=== PATIENT | female | born 1955 | race Two or more races ===

== ENCOUNTER → 2016-08-28 | Outpatient (CLI) | payer BC ==
--- NOTE | 2016-08-28 16:00 | Diagnostic Imaging Report ---
Indication: SCREEN Technique: Bilateral Craniocaudal and mediolateral oblique views were obtained. Comparison: 02/25/2015 diagnostic mammogram and ultrasound, 01/19/20 14/05/1999 screening exam Findings: The breasts are heterogeneously dense, which may obscure small masses. No parenchymal asymmetry nor architectural distortion. There are benign calcifications bilaterally. No dominant masses nor suspicious clustered microcalcifications. No skin thickening nor nipple retraction. No axillary adenopathy. Previously reported left breast asymmetries were worked up, thought to be artifactual for diagnostic imaging, are less conspicuous currently. Impression: No mammographic evidence of malignancy. Routine annual rescreening recommended. BI-RADS category 2-benign. Breast density BI-RADS type C-heterogeneously dense breasts, which may obscure small masses
== END | disposition home or self-care (01) ==
LOC: MAMMO 10:08
DX: Z12.31 Encounter for screening mammogram for malignant neoplasm of breast (principal)
CPT/HCPCS: 77067

== ENCOUNTER 2018-11-13 13:58 | Inpatient (IN) | payer BC ==
[~2018-11-13] VITALS: Ht 149.9 cm; Wt 80.3 kg
[2018-11-13] MEDS ORDERED: SYNTHROID100 MCG ORAL (14:16)
[2018-11-13] MEDS ORDERED: Isovue-300 100ml vial INJ PRN (14:30)
--- NOTE | 2018-11-13 14:35 | Emergency Room Report ---
History of Present Illness General Chief Complaint: Pain Source: Patient Present Illness HPI 63-year-old female history of hypothyroidism presents with right flank pain that started at 9 PM unknown aggravating alleviating factors, pain was sharp, constant no dysuria no fevers she endorsed feeling sweaty. Pain subsided 30 minutes prior to arrival, patient presents for evaluation. She denies any chest pain shortness of breath, no dyspnea on exertion Allergies: Coded Allergies: No Known Allergies (Unverified , 11/13/18) Patient History Past Medical History: see triage record Last Menstrual Period: na Reviewed Nursing Documentation: PMH: Agreed; PSxH: Agreed Nursing Documentation-PMH Past Medical History: No History, Except For Hx Cancer: Yes - ovarian removal Review of Systems All Other Systems: negative except mentioned in HPI Physical Exam Vital Signs Date Time Temp Pulse Resp B/P (MAP) Pulse Ox O2 Delivery O2 Flow Rate FiO2 11/13/18 14:08 99.1 102 20 109/68 (82) 99 Room Air Sp02 EP Interpretation: reviewed, normal General Appearance: well appearing, no apparent distress, alert Head: normocephalic, atraumatic Eyes: bilateral eye PERRL, bilateral eye EOMI ENT: uvula midline, moist mucus membranes Neck: supple, thyroid normal, supple/symm/no masses Respiratory: lungs clear, no respiratory distress, no retraction, no accessory muscle use Cardiovascular #1: normal peripheral pulses, regular rate, rhythm, no edema, no gallop, no murmur Gastrointestinal: non tender, soft, no guarding, no rebound Musculoskeletal: normal inspection Neurologic: alert, oriented x3 Psychiatric: mood/affect normal Skin: no rash, warm/dry Medical Decision Making Diagnostic Impression: Primary Impression: JENNA (acute kidney injury) Additional Impressions: Nephrolithiasis Intractable pain ER Course 63-year-old female presents with right flank pain differential diagnosis includes AAA, nephrolithiasis, pyelonephritis CT scan shows a large proximal ureter stone, Dr. De Los Santos consulted will come see patient in AM for possible surgery Will admit patient for intractable pain and management. Patient admitted to Dr. Longo 5:38pm Laboratory Tests Test 11/13/18 14:16 11/13/18 14:45 Urine Color Pale yellow Urine Appearance Clear Urine pH 5 (4.5-8.0) Urine Specific [place] 1.005 (1.005-1.035) Urine Protein Negative (NEGATIVE) Urine Glucose (UA) Negative (NEGATIVE) Urine Ketones Negative (NEGATIVE) Urine Blood Negative (NEGATIVE) Urine Nitrite Negative (NEGATIVE) Urine Bilirubin Negative (NEGATIVE) Urine Urobilinogen Normal MG/DL (0.0-1.0) Urine Leukocyte Esterase 1+ (NEGATIVE) H Urine RBC 0 /HPF (0 - 2) Urine WBC 0-2 /HPF (0 - 2) Urine Squamous Epithelial Cells Occasional /LPF Urine Bacteria None /HPF (NONE) White Blood Count 11.3 K/UL (4.8-10.8) H Red Blood Count 4.38 M/UL (4.20-5.40) Hemoglobin 13.9 G/DL (12.0-16.0) Hematocrit 40.2 % (37.0-47.0) Mean Corpuscular Volume 92 FL (80-99) Mean Corpuscular Hemoglobin 31.8 PG (27.0-31.0) H Mean Corpuscular Hemoglobin Concent 34.7 G/DL (32.0-36.0) Red Cell Distribution Width 11.1 % (11.6-14.8) L Platelet Count 191 K/UL (150-450) Mean Platelet Volume 7.0 FL (6.5-10.1) Neutrophils (%) (Auto) % (45.0-75.0) Lymphocytes (%) (Auto) % (20.0-45.0) Monocytes (%) (Auto) % (1.0-10.0) Eosinophils (%) (Auto) % (0.0-3.0) Basophils (%) (Auto) % (0.0-2.0) Differential Total Cells Counted 100 Neutrophils % (Manual) 73 % (45-75) Lymphocytes % (Manual) 3 % (20-45) L Monocytes % (Manual) 2 % (1-10) Eosinophils % (Manual) 0 % (0-3) Basophils % (Manual) 0 % (0-2) Band Neutrophils 22 % (0-8) H Platelet Estimate Adequate Platelet Morphology Normal Red Blood Cell Morphology Normal Sodium Level 139 MMOL/L (136-145) Potassium Level 3.5 MMOL/L (3.5-5.1) Chloride Level 103 MMOL/L (98-107) Carbon Dioxide Level 18 MMOL/L (21-32) L Anion Gap 18 mmol/L (5-15) H Blood Urea Nitrogen 20 mg/dL (7-18) H Creatinine 1.5 MG/DL (0.55-1.30) H Estimate Glomerular Filtration Rate 35.1 mL/min (>60) Glucose Level 155 MG/DL (74-106) H Calcium Level 8.9 MG/DL (8.5-10.1) Total Bilirubin 0.6 MG/DL (0.2-1.0) Aspartate Amino Transferase (AST) 23 U/L (15-37) Alanine Aminotransferase (ALT) 27 U/L (12-78) Alkaline Phosphatase 70 U/L (46-116) Troponin I 0.000 ng/mL (0.000-0.056) Total Protein 7.5 G/DL (6.4-8.2) Albumin 3.3 G/DL (3.4-5.0) L Globulin 4.2 g/dL Albumin/Globulin Ratio 0.8 (1.0-2.7) L Lipase 109 U/L (73-393) EKG Diagnostic Results EKG Time: 14:26 EP Interpretation: Sinus tachycardia, rate 101, QTc 404, no acute ST elevations , left axis dev CT/MRI/US Diagnostic Results CT/MRI/US Diagnostic Results : Impression Preliminary Findings Only See Final Report For Complete Findings CT ABDOMEN & PELVIS With Contrast: 7 x 10 x 24 mm stone in the right proximal ureter with moderate obstructive changes. Superimposed infection should be considered. Small hiatal hernia. Fatty liver. No radiodense gallstones or pancreatitis. Heterogeneous uterus with the low attenuation foci. Fat-containing umbilical hernia. Radiologist: Brayan Garnett M.D. Study ready at 16:21 and initial results transmitted at 16:32 Last Vital Signs Date Time Temp Pulse Resp B/P (MAP) Pulse Ox O2 Delivery O2 Flow Rate FiO2 11/13/18 14:08 99.1 102 20 109/68 (82) 99 Room Air Disposition: ADMITTED INPATIENT Condition: Stable Brian Rothman MD Nov 13, 2018 14:35
[2018-11-13 15:08] LABS: HEMATOCRIT 40.2 % (37.0-47.0); HEMOGLOBIN 13.9 G/DL (12.0-16.0); MEAN CORPUSCULAR VOLUME 92 FL (80-99); PLATELET COUNT 191 K/UL (150-450); RED BLOOD COUNT 4.38 M/UL (4.20-5.40); RED CELL DISTRIBUTION WIDTH 11.1 % (11.6-14.8); WHITE BLOOD COUNT 11.3 K/UL (4.8-10.8)
[2018-11-13 15:18] LABS: ANION GAP 18 mmol/L (5-15); BLOOD UREA NITROGEN 20 mg/dL (7-18); CALCIUM 8.9 MG/DL (8.5-10.1); CARBON DIOXIDE 18 MMOL/L (21-32); CHLORIDE 103 MMOL/L (98-107); CREATININE 1.5 MG/DL (0.55-1.30); POTASSIUM 3.5 MMOL/L (3.5-5.1); SODIUM 139 MMOL/L (136-145)
[2018-11-13 15:23] LABS: ALANINE AMINOTRANSFERASE 27 U/L (12-78); ALBUMIN 3.3 G/DL (3.4-5.0); ALBUMIN/GLOBULIN RATIO 0.8 (1.0-2.7); ALKALINE PHOSPHATASE 70 U/L (46-116); ASPARTATE AMINO TRANSFERASE 23 U/L (15-37); BILIRUBIN,TOTAL 0.6 MG/DL (0.2-1.0)
--- NOTE | 2018-11-13 15:30 | NUR ---
ED Nurse Note:pt. came with c/o abdominal pain and nausea, blood and urine sent to labs and pt. received IV meds and fluids, she went to CT abdomen
[2018-11-13 15:46] VITALS: BP 109/68
[2018-11-13 15:54] LABS: APPEARANCE,URINE CLEAR; BILIRUBIN, URINE NEGATIVE (NEGATIVE); COLOR,URINE PALE YELLOW; GLUCOSE, URINE (UA) NEGATIVE (NEGATIVE); KETONES,URINE NEGATIVE (NEGATIVE); LEUKOCYTE ESTERASE ,URINE 1+ (NEGATIVE); NITRITE,URINE NEGATIVE (NEGATIVE); PH,URINE 5 (4.5-8.0); PROTEIN,URINE NEGATIVE (NEGATIVE); UROBILINOGEN,URINE NORMAL MG/DL (0.0-1.0)
--- NOTE | 2018-11-13 16:33 | Diagnostic Imaging Report ---
Indication: Abdominal pain Technique: Continuous helical transaxial imaging of the abdomen and pelvis was obtained from the lung bases to the pubic symphysis during intravenous contrast administration. Coronal 2-D reformats were also obtained. Study obtained in a Siemens sensation [address] Automatic Exposure Control was utilized. Total Dose length Product (DLP): 780.[address] Dose Index Volume (CTDIvol): 16.58 mGy Comparison: None Findings: There is breathing motion which limits evaluation. The lung bases are grossly clear. There is a small hiatal hernia. Liver is hypodense consistent with fatty infiltration. Gallbladder is unremarkable. The pancreas and spleen and both adrenal glands are unremarkable. The right kidney is enlarged slightly malrotated and there is perinephric stranding and hydroureteronephrosis secondary to a prominent UPJ stone measuring 0.7 x 1.0 x 2.4 cm. The bladder is unremarkable. Uterus is noted. Bowel gas pattern is nonobstructive. Umbilical hernia containing fat demonstrated. Right inguinal hernia containing fat demonstrated. Appendix is normal. Trace calcium noted within the wall of aorta. IMPRESSION: Moderate right hydroureteronephrosis and obstruction secondary to 2.4 cm UPJ calculus. Multiple additional incidental findings as above. [facility] has communicated the preliminary results to the Emergency Department. Their findings are largely concordant with this report. The CT scanner at [facility] is accredited by the [employer] and the scans are performed using dose optimization techniques as appropriate to a performed exam including Automatic Exposure control.
[2018-11-13] MEDS ORDERED: cefTRIAXone 1 GM in NS 55 ML IVPB ONE (16:45)
[2018-11-13] MEDS ORDERED: Morphine Sulfate 4mg/ml Inj (IV USE ONLY) IVP ONE (16:45)
--- NOTE | 2018-11-13 18:00 | NUR ---
ED Nurse Note:called [facility] with report- given to Gill RN, pt. taken up stairs
[2018-11-13 18:20] VITALS: BP 103/58
--- NOTE | 2018-11-13 18:20 | NUR ---
NURSE NOTES: PATIENT ARRIVED FROM ER DEPT. VIA WC. PATIENT AOX4. FAMILY AT BEDSIDE.BELONGINGS REVIEWED AND SIGNED WITH TRANSPORTER. PT./ FAMILY ORIENTED TO ROOM. BED IN LOW AND LOCKED POSITION. CALL LIGHT WITHIN REACH. VSS OBTAINED. REPORT WILL BE REPORTED TO ONCOMING NIGHT RN.
--- NOTE | 2018-11-13 19:30 | NUR ---
NURSE NOTES: received report from AM RN Gill. Patient resting in bed with no c/o of pain at rest or while voiding at this time. Vital signs were taken, BP 82/47mmHg with repeat BP 79/49mmHg. Dr. Longo notified and aware. Admission orders taken from Dr. Longo. Order to increase IV fluids D5LR from 150 to 225mL/hr one time dose. Will continue to monitor.
--- NOTE | 2018-11-13 19:34 | NUR ---
HAND-OFF: Report given to CHAPITO SCOTT RN.
--- NOTE | 2018-11-13 19:34 | NUR ---
NURSE NOTES: PATIENT IN BED COMFORTABLE. DENIES PAIN. CALL LIGHT WITHIN REACH.
[2018-11-13 20:00] VITALS: BP 82/47
[2018-11-13] MEDS ORDERED: Milk of Magnesia 30ml Ud ORAL PRN (20:00)
[2018-11-13] MEDS ORDERED: Morphine Sulfate 4mg/ml Inj (IV USE ONLY) IVP PRN ×2 (20:00)
[2018-11-13] MEDS ORDERED: Dextrose 5%/Lactated Ringer's 1,000 ML IV ONE (21:00)
[2018-11-14] VITALS: BP 92/48
[2018-11-14] MEDS: Dextrose 5%/Lactated Ringer's 1,000 ML IV SCH ×5 (02:00→23:48)
[2018-11-14 04:00] VITALS: BP 85/46
--- NOTE | 2018-11-14 07:30 | NUR ---
HAND-OFF: Report given to YORDAN Hidalgo. Patient is in stable condition, denies pain.
[2018-11-14 08:00] VITALS: BP 90/54
--- NOTE | 2018-11-14 08:09 | NUR ---
NURSE NOTES: Pt currently sleeping, no complaints of pain , no per report of outgoing nurse pt has not passed any stones. Pt is able to verbalize known needs . Current plan will be followed .
[2018-11-14] MEDS ORDERED: D5W 275ml ONE (09:16)
--- NOTE | 2018-11-14 10:59 | NUR ---
*-* INSURANCE *-* ALL AVAILABLE CLINICALS HAVE BEEN FAXED TO: [facility] FAX CLINICALS TO [phone]
--- NOTE | 2018-11-14 11:00 | NUR ---
NURSE NOTES: Dr De Los Santos here here seen pt sampson gave orders for pt to have procedure for shock wave lithotripsy , rt renal retrograde with stent placement , may have regular diet , Pt will NPO Post Wednesday Midnight, for procedure on Wednesday Levaquin IV 500 mg QD. Consent Signed, for procedure. No stones captured in strainer. Per Surgeon stone is to large to pass. IV fluids running , iv patent BM times one. No nausea or vomiting. Call light in reach daughter at bedside
[2018-11-14 12:00] VITALS: BP 100/56
[2018-11-14 16:00] VITALS: BP_SYST 101; BP_SYST 64; BP_DIAS 101; BP_DIAS 64
[2018-11-14] MEDS ORDERED: HYDROcodone/Acetamin 7.5/325 tab ORAL PRN (18:15)
--- NOTE | 2018-11-14 18:37 | Cardiology Report ---
APPROVED REPORT EKG Measurement Heart [id number] VT 150P51 [id number] Sinus tachycardia Possible Left atrial enlargement Left axis deviation Anterior infarct, age undetermined Abnormal ECG
[2018-11-14] MEDS ORDERED: Morphine Sulfate 10mg/ml Inj IVP PRN (18:45)
--- NOTE | 2018-11-14 19:30 | NUR ---
NURSE NOTES: Receive a report from YORDAN Hidalgo. Pt is awake and alert. Breathing is even and non labored. No acute distress noted. Denies pain at this time after pain medication. IV running on left FA without infiltration. call light within reach. Will continue to monitor.
--- NOTE | 2018-11-14 19:40 | NUR ---
NURSE NOTES: Pt complained of pain times one Morphine given for pain 5/10 effective, pain at zero. No noted possible side effect related to administration of antibiotics, Plan of care will be followed. Tolerated breakfast well, ate minimal for lunch and dinner. Hydrated well . No further concerns
--- NOTE | 2018-11-14 19:42 | NUR ---
HAND-OFF: Report given to GHO RN made aware of pending surgery and NPO staus for WEDNESDAY MIDNIGHT.
[2018-11-14 20:00] VITALS: BP 116/60
--- NOTE | 2018-11-14 20:30 | NUR ---
NURSE NOTES: Pt is awake and BT checked as 100.2F earlier without chilling or febrile sensation. Rechecked as 99.4F but complains for [place] 3/10. Provide prn Tylenol 325mg 2t po. Denies back pain at this time. No pain noted during urination. Will continue to monitor.
[2018-11-14] MEDS: Morphine Sulfate 4mg/ml Inj (IV USE ONLY) IVP PRN (21:35)
--- NOTE | 2018-11-14 22:30 | NUR ---
NURSE NOTES: After pain medication for right flank pain with ice pack, pt feels comfortable. SCDs on bilateral. Will continue to monitor.
[2018-11-15] VITALS: BP 109/61
--- NOTE | 2018-11-15 | Consultation ---
DATE OF CONSULTATION: 11/14/2018 CONSULTING PHYSICIAN: Ki De Los Santos M.D. REFERRING PHYSICIAN: Omar Longo M.D. REASON FOR CONSULTATION: Right UPJ stone. HISTORY OF PRESENT ILLNESS: The patient is a very pleasant lady with acute renal colic, hydronephrosis, and leukocythemia. She started having pain for the last several weeks, intermittent pain in the right flank. On admission, CT urogram was performed, showing 2.4 cm x 7 mm UPJ stone on the right side with hydronephrosis and she was admitted for hydration and pain control. Currently, she is mildly symptomatic on the right side. PAST MEDICAL HISTORY: Reviewed. MEDICATIONS: Reviewed. ALLERGIES: She is not allergic to medications. REVIEW OF SYMPTOMS: She has mild flank discomfort on the right side, otherwise normal. PHYSICAL EXAMINATION: VITAL SIGNS: Afebrile. Vital signs, stable. NEUROLOGICAL: Neurologically intact. LUNGS: Clear to auscultation. CARDIOVASCULAR: Regular rate and rhythm. ABDOMEN: Soft, nontender. No CVA tenderness. Suprapubic area is intact. LABORATORY DATA: Urinalysis showed several leukocytes and multiple red cells. White count is 11.5. Creatinine is normal. CT scan was again reviewed showing normal findings except for a large stone in the UPJ in the right kidney. ASSESSMENT AND PLAN: The patient has a large right UPJ stone, it is unlikely that she will be able to pass that size stone. She needs extracorporeal shock wave lithotripsy with retrograde intrarenal surgery . She will be NPO post midnight starting tomorrow and she will be on IV antibiotic, Levaquin 500 mg once a day. We will continue IV hydration. Ki De Los Santos M.D. DR: LUISITO JOB#: [id number] CC:
--- NOTE | 2018-11-15 00:45 | History and Physical Report ---
DATE OF ADMISSION: 11/13/2018 CHIEF COMPLAINT/REASON FOR HOSPITALIZATION: The patient IS admitted with right flank pain and nephrolithiasis. HISTORY OF PRESENT ILLNESS: The patient presented with the above symptoms moderately severe requiring opiates. She had some painless hematuria in August and September of this year, short-lived with no prior knowledge of kidney stones. She was found on imaging to have right-sided nephrolithiasis and hydroureter nephrosis with a stone 0.7 x 1 x 2.4 cm and the patient is now more comfortable after opiates. She has generally been in good health. SURGERIES: Removal of both ovaries about 3 years ago and found on pathology to have stage I ovarian cancer. No recurrence. MEDICATIONS: Levothyroxine 50 mcg daily. ALLERGIES: None known. SOCIAL HISTORY: She is employed as a dental tutoring assistant for many years. . FAMILY HISTORY: Mother at age 68 of an ID. Father is aged 92, alive and well. SYSTEM REVIEW: HEENT: Vision and hearing is good. ENDOCRINE: Hypothyroidism, on replacement. No diabetes. PULMONARY: No asthma, TB, or chronic cough. CARDIAC: No angina, ID, or palpitations. GASTROINTESTINAL: No GI bleeding, ulcers, or chronic abdominal pain. GENITOURINARY: See history of present illness. NEUROLOGIC: No CVA, syncope, or seizures. PHYSICAL EXAMINATION: GENERAL: The patient is an alert lady, in no acute distress. VITAL SIGNS: Temperature 98.3, pulse 80, respirations 18, and blood pressure 90/54. HEENT: Sclerae are nonicteric. Ocular motions intact in all directions. Oral mucosa moist. NECK: No adenopathy or thyroid enlargement. LUNGS: Clear. HEART: Regular rhythm. No murmur. ABDOMEN: Soft. No organomegaly or tenderness. EXTREMITIES: No edema, cyanosis, or clubbing. NEUROLOGIC: She is alert and oriented. Cranial nerves are intact. IMPRESSION: 1. Nephrolithiasis with right-sided hydronephrosis and flank pain. 2. Elevated creatinine 1.5, possibly dehydration, possibly from obstruction. 3. History of hypothyroidism. On replacement. 4. History of ovarian cancer stage I, for gynecologic appointment. PLAN: The patient will be hydrated and strain urine for stones. She has been seen by Urology and the procedure is contemplated for her obstructive uropathy. Omar Longo M.D. DR: LEE JOB#: [id number] CC:
[2018-11-15 04:00] VITALS: BP 97/45
[2018-11-15 05:34] LABS: HEMATOCRIT 32.2 % (37.0-47.0); HEMOGLOBIN 10.9 G/DL (12.0-16.0); MEAN CORPUSCULAR VOLUME 93 FL (80-99); PLATELET COUNT 87 K/UL (150-450); RED BLOOD COUNT 3.47 M/UL (4.20-5.40); RED CELL DISTRIBUTION WIDTH 11.8 % (11.6-14.8); WHITE BLOOD COUNT 10.9 K/UL (4.8-10.8)
[2018-11-15 05:55] LABS: ANION GAP 7 mmol/L (5-15); BLOOD UREA NITROGEN 8 mg/dL (7-18); CALCIUM 8.5 MG/DL (8.5-10.1); CARBON DIOXIDE 25 MMOL/L (21-32); CHLORIDE 108 MMOL/L (98-107); CREATININE 0.9 MG/DL (0.55-1.30); POTASSIUM 4.4 MMOL/L (3.5-5.1); SODIUM 140 MMOL/L (136-145)
[2018-11-15] MEDS: Dextrose 5%/Lactated Ringer's 1,000 ML IV SCH ×2 (06:21→13:37)
--- NOTE | 2018-11-15 07:20 | NUR ---
HAND-OFF: Report given to YORDAN Langston. Round is done. Pt is about to have breakfast. No noted acute distress.
--- NOTE | 2018-11-15 07:47 | NUR ---
NURSE NOTES: Report received from Gho RN. Patient is sitting on chair, eating breakfast. Patient is AOx4 and able to make needs known. Respiratory even and unlabored. Patient denies pain at this time. IV site is asymptomatic, patent, and intact. IVF is running at a prescribed rate. Encouraged patient to use call light when in need of assistance, patient verbalized understanding. Will continue to monitor.
[2018-11-15 08:00] VITALS: BP 126/65
--- NOTE | 2018-11-15 08:52 | NUR ---
CASE MANAGEMENT:REVIEW 63 YR OLD FEMALE FROM HOME TO ER CC: RT FLANK AND ABDOMINAL PAIN. NAUSEA SI: JENNA. INTRACTABLE PAIN. NEPHROLITHIASIS 99.1 102 20 109/68 99% ON RA WBC+11.3 BUN+20 CR+1.5 IS: IV ZOFRAN IV PEPCID 1L NS BOLUS IV ROCEPHIN IV MORPHINE CT ABD/PELVIS : TO MED/SURG UNIT 3 [facility] 11/15/17 SI: NEPHROLITHIASIS. RT SIDED HYDRONEPHROSIS 98.5 64 17 97/45 96% ON RA WBC+10.9 H/H-10.9/32.2 PLT-87 IS: IV LEVAQUIN Q24 IV MORPHINE Q2HRS PRN IVF@150/HR : MED/SURG STATUS 3 [facility] DCP: HOME PLAN: PAIN MGMT CONSENT FOR:SURGERY FOR EXTRACORPORAL SHOCK WAVE LITHOTRIPSY...RETROGRADE RENAL STENT PLACEMENT
--- NOTE | 2018-11-15 10:11 | NUR ---
NURSE NOTES: Notified Dr. De Los Santos regarding patient's platelet of 87 this AM. Awaiting call back.
--- NOTE | 2018-11-15 10:18 | NUR ---
NURSE NOTES: Notified primary MD regarding patient's platelet 87, awaiting call back.
--- NOTE | 2018-11-15 10:36 | NUR ---
NURSE NOTES: Spoke to Dr. Longo re: pt's platelet. No new orders noted.
[2018-11-15 11:35] VITALS: BP 125/71
[2018-11-15] MEDS: Morphine Sulfate 4mg/ml Inj (IV USE ONLY) IVP PRN ×2 (12:08→15:41)
--- NOTE | 2018-11-15 12:15 | NUR ---
NURSE NOTES: Patient is c/o of right flank pain; addressed as appropriate. Educated the patient the side effect of MS, including respiratory depression and/or drowsiness, instructed pt to use call light before ambulating to the restroom; pt verbalized understanding. Will continue to monitor.
--- NOTE | 2018-11-15 13:29 | NUR ---
*-* INSURANCE *-* ALL AVAILABLE CLINICALS HAVE BEEN FAXED TO: [facility] FAX CLINICALS TO [phone]
[2018-11-15 16:00] VITALS: BP 133/71
--- NOTE | 2018-11-15 17:19 | General Progress Note ---
Assessment/Plan Problem List: (1) Nephrolithiasis ICD Codes: N20.0 - Calculus of kidney SNOMED: 66734787 (2) Intractable pain ICD Codes: R52 - Pain, unspecified SNOMED: 19698366 (3) anemia (4) Glucose intolerance ICD Codes: E74.39 - Other disorders of intestinal carbohydrate absorption SNOMED: 24430259 Assessment/Plan: dc dextrose in iv, prepare for cysto Subjective Constitutional: Reports: no symptoms HEENT: Reports: no symptoms Cardiovascular: Reports: no symptoms Respiratory: Reports: no symptoms Gastrointestinal/Abdominal: Reports: no symptoms Genitourinary: Reports: flank pain Neurologic/Psychiatric: Reports: no symptoms Endocrine: Reports: no symptoms Hematologic/Lymphatic: Reports: no symptoms Allergies: Coded Allergies: No Known Allergies (Unverified , 11/13/18) Objective Last 24 Hour Vital Signs Date Time Temp Pulse Resp B/P (MAP) Pulse Ox O2 Delivery O2 Flow Rate FiO2 11/15/18 16:00 98.6 61 18 133/71 (91) 97 11/15/18 11:35 98.2 59 19 125/71 (89) 97 11/15/18 08:00 97.5 58 21 126/65 (85) 97 11/15/18 04:00 98.5 64 17 97/45 (62) 96 11/15/18 00:00 98.7 76 16 109/61 (77) 96 11/14/18 21:30 Room Air 11/14/18 20:27 99.4 11/14/18 20:00 100.2 80 18 116/60 (78) 95 Intake and Output 11/14/18 11/15/18 18:59 06:59 Intake Total 1200 ml 1750 ml Balance 1200 ml 1750 ml Intake Oral 250 ml IV Total 1200 ml 1500 ml # Voids 6 Laboratory Tests 11/15/18 05:05: White Blood Count 10.9H, Red Blood Count 3.47L, Hemoglobin 10.9L, Hematocrit 32.2L, Mean Corpuscular Volume 93, Mean Corpuscular Hemoglobin 31.5H, Mean Corpuscular Hemoglobin Concent 34.0, Red Cell Distribution Width 11.8, Platelet Count 87L, Mean Platelet Volume 8.3, Neutrophils (%) (Auto) , Lymphocytes (%) ( Auto) , Monocytes (%) (Auto) , Eosinophils (%) (Auto) , Basophils (%) (Auto) , Differential Total Cells Counted 100, Neutrophils % (Manual) 74, Lymphocytes % ( Manual) 9L, Monocytes % (Manual) 3, Eosinophils % (Manual) 1, Basophils % ( Manual) 0, Band Neutrophils 13H, Platelet Estimate DecreasedL, Platelet Morphology Normal, Red Blood Cell Morphology Normal, Sodium Level 140, Potassium Level 4.4, Chloride Level 108H, Carbon Dioxide Level 25, Anion Gap 7, Blood Urea Nitrogen 8, Creatinine 0.9, Estimat Glomerular Filtration Rate > 60, Glucose Level 218H, Uric Acid 5.4, Calcium Level 8.5, Calcium (Send out) [ Pending], Parathyroid Hormone (Intact) [Pending] Height (Feet): 4 Height (Inches): 10.00 Weight (Pounds): 150 General Appearance: WD/WN, no apparent distress, alert EENT: normal ENT inspection Neck: normal alignment Cardiovascular: normal rate, regular rhythm Respiratory/Chest: lungs clear Abdomen: non tender, soft Edema: no edema noted Arm (L), no edema noted Arm (R), no edema noted Leg (L), no edema noted Leg (R), no edema noted Pedal (L), no edema noted Pedal (R), no edema noted 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
--- NOTE | 2018-11-15 17:31 | Anethesia Preoperative Eval ---
Anesthesia Pre-op PMH/ROS General Date of Evaluation: Nov 15, 2018 Time of Evaluation: 17:30 ASA Score: ASA 2 Mallampati Score Class I : Soft palate, uvula, fauces, pillars visible Class II: Soft palate, uvula, fauces visible Class III: Soft palate, base of uvula visible Class IV: Only hard plate visible Mallampati Classification: Class II Surgeon: Magali Diagnosis: Nephrolithiasis Surgical Procedure: Intra renal surgery Anesthesia History: none Allergies: Coded Allergies: No Known Allergies (Unverified , 11/13/18) Medications: see eMAR Patient NPO?: Yes NPO Date: Nov 15, 2018 NPO Time: 17:30 Past Medical History Cardiovascular: Denies: HTN, CAD, [place], valve dz, arrhythmia, other Pulmonary: Denies: asthma, COPD, TAMMI, other Gastrointestinal/Genitourinary: Denies: GERD, CRI, ESRD, other Neurologic/Psychiatric: Denies: dementia, CVA, depression/anxiety, TIA, other Endocrine: Reports: hypothyroidism; Denies: DM, steroids, other HEENT: Denies: cataract (L), cataract (R), glaucoma, [place] (L), [place] (R), other Hematology/Immune: Reports: anemia Musculoskeletal/Integumentary: Denies: OA, RA, DJD, DDD, edema, other PMH Narrative: IMPRESSION: 1. Nephrolithiasis 2. Elevated creatinine 1.5 3. History of hypothyroidism 4. History of ovarian cancer stage I PSxH Narrative: ovarian removal Anesthesia Pre-op Phys. Exam Physician Exam Last Vital Signs Date Time Temp Pulse Resp B/P (MAP) Pulse Ox O2 Delivery O2 Flow Rate FiO2 11/15/18 16:00 98.6 61 18 133/71 (91) 97 11/14/18 21:30 Room Air Constitutional: NAD Neurologic: CN 2-12 intact Cardiovascular: RRR Respiratory: CTA Gastrointestinal: S/NT/ND Airway Exam Mallampati Classification 2 Mallampati Score: Class II MO: full ROM: full Dentures: no upper, no lower Anesthesia Pre-op A/P Labs Hematology Test 11/15/18 05:05 White Blood Count 10.9 K/UL (4.8-10.8) H Red Blood Count 3.47 M/UL (4.20-5.40) L Hemoglobin 10.9 G/DL (12.0-16.0) L Hematocrit 32.2 % (37.0-47.0) L Mean Corpuscular Volume 93 FL (80-99) Mean Corpuscular Hemoglobin 31.5 PG (27.0-31.0) H Mean Corpuscular Hemoglobin Concent 34.0 G/DL (32.0-36.0) Red Cell Distribution Width 11.8 % (11.6-14.8) Platelet Count 87 K/UL (150-450) L Mean Platelet Volume 8.3 FL (6.5-10.1) Neutrophils (%) (Auto) % (45.0-75.0) Lymphocytes (%) (Auto) % (20.0-45.0) Monocytes (%) (Auto) % (1.0-10.0) Eosinophils (%) (Auto) % (0.0-3.0) Basophils (%) (Auto) % (0.0-2.0) Differential Total Cells Counted 100 Neutrophils % (Manual) 74 % (45-75) Lymphocytes % (Manual) 9 % (20-45) L Monocytes % (Manual) 3 % (1-10) Eosinophils % (Manual) 1 % (0-3) Basophils % (Manual) 0 % (0-2) Band Neutrophils 13 % (0-8) H Platelet Estimate Decreased L Platelet Morphology Normal Red Blood Cell Morphology Normal Chemistry Test 11/15/18 05:05 Sodium Level 140 MMOL/L (136-145) Potassium Level 4.4 MMOL/L (3.5-5.1) Chloride Level 108 MMOL/L (98-107) H Carbon Dioxide Level 25 MMOL/L (21-32) Anion Gap 7 mmol/L (5-15) Blood Urea Nitrogen 8 mg/dL (7-18) Creatinine 0.9 MG/DL (0.55-1.30) Estimat Glomerular Filtration Rate > 60 mL/min (>60) Glucose Level 218 MG/DL (74-106) H Uric Acid 5.4 MG/DL (2.6-7.2) Calcium Level 8.5 MG/DL (8.5-10.1) Calcium (Send out) Pending Parathyroid Hormone (Intact) Pending Studies Pre-op Studies: EKG - SR Risk Assessment & Plan Plan: Geneal Status Change Before Surgery: No Tarrillion,Stella Belle MARKETING DATABASE ANALYST Nov 15, 2018 17:31
[2018-11-15] MEDS: 1/2NS w/KCl 20mEq 1000ml 1,000 ML IV SCH (18:13)
--- NOTE | 2018-11-15 19:33 | NUR ---
HAND-OFF: Report given to Kerri FARR. Patient is in stable condition. Family members at bedside. Endorsed plan of care and upcoming surgery in AM.
--- NOTE | 2018-11-15 19:34 | NUR ---
NURSE NOTES: Received report & pt from YORDAN Clemente. Pt lying in bed, a&ox4, in room air. No s/s of acute distress & no c/o pain at this time. Pt NPO @ midnight for tomorrow's procedure & pt aware. IV site intact & S/L'd. Bed in lowest position, call light within reach. Will continue to monitor.
[2018-11-15 20:00] VITALS: BP 148/78
[2018-11-16] VITALS (17 sets, daily range): BP systolic 102–157; BP diastolic 55–89
[2018-11-16] MEDS: 1/2NS w/KCl 20mEq 1000ml 1,000 ML IV SCH ×2 (02:02→09:30)
[2018-11-16] MEDS: Morphine Sulfate 4mg/ml Inj (IV USE ONLY) IVP PRN (06:16)
[2018-11-16 06:36] LABS: BASOPHILS % (AUTO) 0.5 % (0.0-2.0); EOSINOPHILS % (AUTO) 0.5 % (0.0-3.0); HEMOGLOBIN 11.1 G/DL (12.0-16.0); LYMPHOCYTES % (AUTO) 11.5 % (20.0-45.0); MEAN CORPUSCULAR VOLUME 92 FL (80-99); MONOCYTES % (AUTO) 4.5 % (1.0-10.0); PLATELET COUNT 108 K/UL (150-450); RED CELL DISTRIBUTION WIDTH 12.3 % (11.6-14.8); WHITE BLOOD COUNT 10.6 K/UL (4.8-10.8)
[2018-11-16 06:46] LABS: ANION GAP 8 mmol/L (5-15); BLOOD UREA NITROGEN 6 mg/dL (7-18); CALCIUM 8.6 MG/DL (8.5-10.1); CARBON DIOXIDE 23 MMOL/L (21-32); CHLORIDE 106 MMOL/L (98-107); CREATININE 1.1 MG/DL (0.55-1.30); POTASSIUM 4.1 MMOL/L (3.5-5.1); SODIUM 137 MMOL/L (136-145)
--- NOTE | 2018-11-16 07:25 | NUR ---
HAND-OFF: Report given to YORDAN Guerrero. Rounds done. Pt in stable condition. Pre-op checklist to be done by AM shift; Pt is scheduled for surgery @ 1015 & pt aware.
--- NOTE | 2018-11-16 07:30 | NUR ---
NURSE NOTES: Received report from Kerri FARR. Patient is asleep during rounds, no acute distress noted. RR even and unlabored. IVF running per order. Surgery scheduled for today, NPO maintained over night per report from machinist 2nd shift nurse. Side rails upx2, bed low and locked, call light in reach. Will continue to monitor.
--- NOTE | 2018-11-16 08:30 | NUR ---
NURSE NOTES: Spoke with Sheridan FARR in pre-op. Informed RN that patient has not had a pre-op EKG or chest x-ray done, pre-op to follow up.
--- NOTE | 2018-11-16 09:00 | NUR ---
NURSE NOTES: Patient taken down for surgery by makayla Canela with IV antibiotic running.
[2018-11-16] MEDS ORDERED: Iothalamate Meglumine 60% 30ML INJ ONE (09:43)
[2018-11-16] MEDS ORDERED: LR 1000ml 1,000 ML IVLG SCH (11:17)
--- NOTE | 2018-11-16 11:20 | Immediate Post-Op Evaluation ---
Immediate Post-Op Evalulation Immediate Post-Op Evalulation Procedure: Intrarenal Stent Placement Date of Evaluation: Nov 16, 2018 Time of Evaluation: 13:57 IV Fluids: 1000 LR Blood Products: 0 Estimated Blood Loss: 25 Urinary Output: 0 Blood Pressure Systolic: 90 Blood Pressure Diastolic: 53 Pulse Rate: 71 Respiratory Rate: 16 O2 Sat by Pulse Oximetry: 94 Temperature (Fahrenheit): 99.6 Pain Score (1-10): 2 Nausea: No Vomiting: No Complications 0 Patient Status: awake, reacts, patent, extubated, none Hydration Status: adequate Dru gram Ancef IV Given Within 1 Hr of Incision: Yes Time Given: 12:31 Gerald Leblanc MD Nov 16, 2018 11:20
[2018-11-16] MEDS ORDERED: Midazolam 2mg/2ml Inj IVP PRN (11:30)
[2018-11-16] MEDS ORDERED: Hydromorphone 0.5mg/0.5ml inj IVP PRN (11:30)
[2018-11-16] MEDS ORDERED: Metoclopramide 10mg/2ml Inj IVP PRN (11:30)
[2018-11-16] MEDS ORDERED: fentaNYL 100 mcg/2 mL IV PRN (11:30)
[2018-11-16] MEDS ORDERED: LORazepam Inj 2mg/ml 1ml IV PRN (11:30)
[2018-11-16] MEDS ORDERED: Ketorolac 30mg Inj IV PRN ×2 (11:30)
[2018-11-16] MEDS ORDERED: Meperidine 50mg/ml Inj(FOR RIGORS ONLY) IVP PRN (11:30)
[2018-11-16] MEDS ORDERED: HYDROcodone/Acetamin 5/325 tab ORAL PRN (11:30)
[2018-11-16] MEDS ORDERED: HYDROcodone/Acetamin 7.5/325 tab ORAL PRN (11:30)
[2018-11-16] MEDS ORDERED: DiphenhydrAMINE 50mg/ml Inj IVP PRN (11:30)
[2018-11-16] MEDS ORDERED: Labetalol 5mg/ml 20ml vial IV PRN (11:30)
[2018-11-16] MEDS ORDERED: oxyCODONE HCL/Acetaminophen 5/325mg ORAL PRN (11:30)
[2018-11-16] MEDS ORDERED: Atropine Sulfate 0.4mg/ml inj IVP PRN (11:30)
[2018-11-16] MEDS ORDERED: Glycopyrrolate 0.2mg/ml 1ml Vial ONE (11:39)
--- NOTE | 2018-11-16 12:04 | Pre-Procedure Note/Attestation ---
Pre-Procedure Note/Attestation Complete Prior to Procedure Planned Procedure: right Procedure Narrative: rirs with stone laser and stent placement Indications for Procedure Pre-Operative Diagnosis: kidney stone Attestation I attest that I discussed the nature of the procedure; its benefits; risks and complications; and alternatives (and the risks and benefits of such alternatives ), prior to the procedure, with the patient (or the patient's legal representative phlebotomy services). I attest that, if there was a reasonable possibility of needing a blood transfusion, the patient (or the patient's legal representative phlebotomy services) was given the [facility] standardized written summary, pursuant to the Kip [place] Blood Safety Act ([place] Health and Safety Code # 1645, as amended). I attest that I re-evaluated the patient just prior to the surgery and that there has been no change in the patient's H&P, except as documented below: Ki De Los Santos MD Nov 16, 2018 12:04
[2018-11-16] MEDS ORDERED: Sodium Chloride 10ml vial INJ ONE (12:19)
[2018-11-16] MEDS ORDERED: Dexamethasone 4mg/ml vial ONE (12:19)
[2018-11-16] MEDS ORDERED: Lidocaine 1% MPF 10mg/ml 5ml ONE (12:19)
[2018-11-16] MEDS ORDERED: Propofol 200mg/20ml IV ONE (12:19)
[2018-11-16] MEDS ORDERED: fentaNYL 100 mcg/2 mL IV ONE ×2 (12:20→13:25)
[2018-11-16] MEDS ORDERED: Midazolam 2mg/2ml Inj ONE (12:20)
--- NOTE | 2018-11-16 12:23 | NUR ---
CASE MANAGEMENT:REVIEW 11/16/17 SI: NEPHROLITHIASIS. RT SIDED HYDRONEPHROSIS 98.3 64 16 130/69 98% ON RA H/H-11.1/33.0 PLT-108 IS: IV LEVAQUIN Q24 IV MORPHINE Q2HRS PRN IVF@125/HR SYNTHROID PO QD TO SURGERY: EXTRACORPORAL SHOCK WAVE LITHOTRIPSY...RETROGRADE RENAL STENT PLACEMENT : MED/SURG STATUS 3 EAST DCP: HOME PLAN: PAIN MGMT
[2018-11-16] MEDS ORDERED: Sterile Water Irrig 1000ml IRRIG ONE ×2 (12:54→13:10)
[2018-11-16] MEDS ORDERED: NS Irrig 2000ml IRRIG ONE ×2 (12:54→13:10)
--- NOTE | 2018-11-16 13:32 | Brief Operative Note ---
Immediate Post Operative Note Operative Note Pre-op Diagnosis: kidney stone Procedure: RIRS RPG Stent placement right kidney Post-op Diagnosis: upj stone Surgeon: paula perez Anesthesia: general Specimen: none Complications: none Condition: stable Fluids: 1000 Estimated Blood Loss: minimal Implant(s) used?: Ki Jin MD Nov 16, 2018 13:32
[2018-11-16 15:23] LABS: ANION GAP 10 mmol/L (5-15); BLOOD UREA NITROGEN 9 mg/dL (7-18); CALCIUM 9.7 MG/DL (8.5-10.1); CARBON DIOXIDE 25 MMOL/L (21-32); CHLORIDE 104 MMOL/L (98-107); CREATININE 1.2 MG/DL (0.55-1.30); SODIUM 139 MMOL/L (136-145)
--- NOTE | 2018-11-16 15:30 | NUR ---
NURSE NOTES: Patient arrived back to unit from surgery at 1515, awake and oriented, no acute distress noted, reporting no pain, on 2L NC. SCD's in place. Early catheter to gravity with blood tinged urine noted. IV site intact, patent. VS assessed and stable. Patient updated on plan of care for the day. Side rails upx3, bed low and locked, call light in reach. Will continue to monitor.
[2018-11-16] MEDS: D5 1/2NS 1,000 ML IV SCH (15:48)
--- NOTE | 2018-11-16 16:14 | Diagnostic Imaging Report ---
Indication: Abdominal/pelvic pain. Intraoperative imaging Technique: 2 intraoperative fluoroscopic images Operating surgeon: Ki De Los Santos MD Total fluoroscopy time: 34.2 seconds Total fluoroscopy dose: 7.08 mGy Comparison: Correlation made to CT of the abdomen and pelvis 11/13/2018 Findings: 2 intraoperative fluoroscopic images were obtained. Initial image demonstrates retrograde cannulation of the right ureter with injection of contrast. Second image demonstrates placement of a ureteral stent. IMPRESSION: Fluoroscopic imaging from urologic procedure. Please see operative report.
--- NOTE | 2018-11-16 16:30 | General Progress Note ---
Assessment/Plan Problem List: (1) Nephrolithiasis ICD Codes: N20.0 - Calculus of kidney SNOMED: 60445980 (2) Intractable pain ICD Codes: R52 - Pain, unspecified SNOMED: 34446817 (3) anemia (4) Glucose intolerance ICD Codes: E74.39 - Other disorders of intestinal carbohydrate absorption SNOMED: 99051611 Assessment/Plan: dc dextrose in iv, postop cysto+stent, hawkins, instructed on diet possible dc in am Subjective Constitutional: Reports: no symptoms HEENT: Reports: no symptoms Cardiovascular: Reports: no symptoms Respiratory: Reports: no symptoms Gastrointestinal/Abdominal: Reports: no symptoms Genitourinary: Reports: no symptoms Neurologic/Psychiatric: Reports: no symptoms Endocrine: Reports: no symptoms Hematologic/Lymphatic: Reports: no symptoms Allergies: Coded Allergies: No Known Allergies (Unverified , 11/13/18) Objective Last 24 Hour Vital Signs Date Time Temp Pulse Resp B/P (MAP) Pulse Ox O2 Delivery O2 Flow Rate FiO2 11/16/18 14:55 97.7 95 17 133/69 95 Nasal Cannula 3 11/16/18 14:40 73 15 147/72 95 Nasal Cannula 3 11/16/18 14:25 74 19 145/70 95 Nasal Cannula 3 11/16/18 14:15 81 16 146/71 95 Simple Mask 6 11/16/18 14:05 79 15 157/67 97 Simple Mask 6 11/16/18 13:56 83 15 143/70 98 Simple Mask 6 11/16/18 13:51 77 24 136/76 98 Simple Mask 6 11/16/18 13:46 99.6 74 16 102/63 96 Simple Mask 6 11/16/18 13:42 71 16 94 11/16/18 09:00 Room Air 11/16/18 08:00 98.3 64 16 130/69 (89) 98 11/16/18 04:30 98.6 11/16/18 04:00 99.9 69 15 132/55 (80) 94 11/16/18 00:00 98.5 71 18 143/76 (98) 94 11/15/18 20:00 99.8 66 17 148/78 (101) 92 Intake and Output 11/15/18 11/16/18 19:00 07:00 Intake Total 1280 ml 1740 ml Output Total 2000 ml Balance 1280 ml -260 ml Intake Oral 480 ml 240 ml IV Total 800 ml 1500 ml Output Urine Total 2000 ml Laboratory Tests 11/16/18 05:00: White Blood Count 10.6, Red Blood Count 3.60L, Hemoglobin 11.1L, Hematocrit 33.0L, Mean Corpuscular Volume 92, Mean Corpuscular Hemoglobin 30.8, Mean Corpuscular Hemoglobin Concent 33.7, Red Cell Distribution Width 12.3, Platelet Count 108L, Mean Platelet Volume 8.9, Neutrophils (%) (Auto) 83.0H, Lymphocytes (%) (Auto) 11.5L, Monocytes (%) (Auto) 4.5, Eosinophils (%) (Auto) 0.5, Basophils (%) (Auto) 0.5, Sodium Level 137, Potassium Level 4.1, Chloride Level 106, Carbon Dioxide Level 23, Anion Gap 8, Blood Urea Nitrogen 6L, Creatinine 1.1, Estimat Glomerular Filtration Rate 50.2, Glucose Level 125H, Hemoglobin A1c 6.5H, Calcium Level 8.6 11/16/18 14:55: Sodium Level 139, Potassium Level 4.0, Chloride Level 104, Carbon Dioxide Level 25, Anion Gap 10, Blood Urea Nitrogen 9, Creatinine 1.2, Estimat Glomerular Filtration Rate 45.3, Glucose Level 112H, Calcium Level 9.7 Height (Feet): 4 Height (Inches): 11.00 Weight (Pounds): 177 General Appearance: no apparent distress, alert EENT: normal ENT inspection Neck: non-tender, normal alignment Cardiovascular: normal rate Respiratory/Chest: lungs clear Abdomen: soft Edema: no edema noted Arm (L), no edema noted Arm (R), no edema noted Leg (L), no edema noted Leg (R), no edema noted Pedal (L), no edema noted Pedal (R), no edema noted Generalized Omar Longo MD Nov 16, 2018 16:30
--- NOTE | 2018-11-16 16:39 | NUR ---
*-* INSURANCE *-* ALL AVAILABLE CLINICALS HAVE BEEN FAXED TO: [facility] FAX CLINICALS TO [phone]
--- NOTE | 2018-11-16 18:38 | NUR ---
NURSE NOTES: Noted patient has low grade temperature. Cooling measure implemented, patient provided with ice packs for bilateral axilla.
--- NOTE | 2018-11-16 19:19 | NUR ---
HAND-OFF: Report given to Kerri FARR.
[2018-11-16 19:21] LABS: HEMATOCRIT 38.4 % (37.0-47.0); MEAN CORPUSCULAR VOLUME 91 FL (80-99); PLATELET COUNT 108 K/UL (150-450); RED BLOOD COUNT 4.19 M/UL (4.20-5.40); RED CELL DISTRIBUTION WIDTH 11.3 % (11.6-14.8); WHITE BLOOD COUNT 6.7 K/UL (4.8-10.8)
--- NOTE | 2018-11-16 19:30 | NUR ---
NURSE NOTES: Received report & pt from YORDAN Guerrero. Pt lying in bed, a&ox4, On o2 via NC @ 2LPM. No s/s of acute distress & no c/o pain at this time. Early intact noted with blood tinged urine draining to gravity. IV site intact with IVF running as ordered. Strain all urine & pt aware. Bed in lowest position, call light within reach. Will continue to monitor.
--- NOTE | 2018-11-16 21:00 | Discharge Summary ---
DATE OF ADMISSION: 11/13/2018 DATE OF DISCHARGE: 11/17/2018 PERTINENT HISTORY: The patient is a 63-year-old lady with right flank pain requiring opiates and had some painless hematuria within the last few months, found to have right-sided nephrolithiasis and hydroureter with a 0.7 x 1 x 2.4 cm stone. PERTINENT PHYSICAL FINDINGS: Exam was negative on my exam. COURSE IN THE HOSPITAL: The patient is admitted with nephrolithiasis and hydronephrosis and flank pain. Admission creatinine 1.5, which improved to 0.9 and then 1.2. The patient was hydrated and given pain medication. She subsequently underwent urologic procedure by Dr. Ki Anna with RIRS RPG stent placement right kidney and the patient tolerated the procedure well. PHYSICAL EXAMINATION: VITAL SIGNS: On day of discharge, her vital signs were stable. LUNGS: Clear. HEART: Regular rhythm. ABDOMEN: Nontender. She was discharged home in improved condition. FINAL DIAGNOSES: 1. Right UPJ stone with hydronephrosis. 2. Renal colic. 3. Acute kidney injury, improved. 4. Glucose intolerance of glucose , on IV fluids containing dextrose and hemoglobin A1c is 6.5. 5. Hypothyroidism, on replacement. DISCHARGE DISPOSITION: Home on her prior to admission medications and levaquin and pyridium FOLLOW UP: By Dr. Longo and Dr. Anna, all prior to admission physicians she sees. Omar Longo M.D. DR: MICHELE JOB#: [id number] CC: JULIA
[2018-11-17] VITALS: BP 114/62
[2018-11-17] MEDS: D5 1/2NS 1,000 ML IV SCH ×2 (02:00→11:30)
[2018-11-17 04:00] VITALS: BP 86/39
--- NOTE | 2018-11-17 07:22 | NUR ---
HAND-OFF: Report given to YORDAN Guerrero. Rounds done. Pt in stable condition.
[2018-11-17 08:00] VITALS: BP 113/63
--- NOTE | 2018-11-17 08:10 | NUR ---
NURSE NOTES: Received report from Kerri FARR. Patient is awake oriented, no acute distress noted, reporting no pain at this time. Patient up in chair having breakfast and tolerating well. Early to gravity drainage, draining clear, yellow urine, anchored to left leg. Patient updated on plan of care for the day. Call light within reach. Will continue to monitor.
--- NOTE | 2018-11-17 09:35 | NUR ---
NURSE NOTES: Spoke with Dr. De Los Santos. ordered to remove patient's hawkins catheter and that patient is cleared for discharge from his standpoint. Will remove per order and follow up with Dr. Longo for discharge order.
--- NOTE | 2018-11-17 11:00 | NUR ---
NURSE NOTES: Early catheter removed per MD order by charge nurse Rubi. Patient is voiding without difficulty.
[2018-11-17 12:00] VITALS: BP 117/64
[2018-11-17] MEDS ORDERED: LEVOFLOXACIN250 MG ORAL (13:00)
[2018-11-17] MEDS ORDERED: PHENAZOPYRIDIN100 MG ORAL (13:01)
[2018-11-17] MEDS ORDERED: D5 1/2NS 1000ml IV ONE (14:53)
--- NOTE | 2018-11-17 14:54 | NUR ---
NURSE NOTES: Patient discharged without acute distress. Discharge instructions/education provided by eric Venegas RN. Patient educated on new medications and to follow up with Dr. De Los Santos, patient verbalized understanding. Escorted off unit via wheelchair by OFFICE RN and patient's daughter to private vehicle.
--- NOTE | 2018-11-17 15:04 | NUR ---
*-* INSURANCE *-* ALL AVAILABLE CLINICALS HAVE BEEN FAXED TO: [facility] FAX CLINICALS TO [phone]
--- NOTE | 2018-11-17 17:00 | Operative Note - Dictated ---
DATE OF OPERATION: 11/16/2018 PREOPERATIVE DIAGNOSIS: Large semi-staghorn calculi of the right kidney. POSTOPERATIVE DIAGNOSIS: Large semi-staghorn calculi of the right kidney. OPERATION: Cystoscopy, flexible and semi-rigid ureteroscopy with laser stone fragmentation, retrograde pyelogram, double-J stent placement. OPERATED BY: Ki De Los Santos M.D. ANESTHESIA: General. FINDINGS: Large 2.4 cm stone in the collecting system of the right kidney. INDICATIONS FOR SURGERY: The patient was admitted to the hospital with right renal colic. CT showed a 2.4 x 80 mm stone in the collecting system of the right kidney. Treatment options explained to her in great length including all potential complications, she signed the consent. She was brought to the operating room, placed in lithotomy position, prepped and draped in standard fashion. Under general anesthesia, cystoscope was introduced into the bladder. Bladder was filled, it was normal. Right ureter was cannulated with guidewire and retrograde catheter was placed. A retrograde pyelogram was performed showing stone in the collecting system of the right kidney using semi-rigid and flexible ureteroscope. Bladder was using 200 micron fiber. The stone was fragmented into small pieces. Double-J stent was placed and left indwelling Early catheter. The patient tolerated procedure well. Sponge count and instrument count were correct. Ki De Los Santos M.D. DR: LUISITO JOB#: [id number] CC:
--- NOTE | 2018-11-18 06:48 | 48 Hour Post Anesthesia Eval ---
Post Anesthesia Evaluation Procedure: Intrarenal Stent Placement Date of Evaluation: Nov 17, 2018 Airway: patent Nausea: No Vomiting: No Hydration Status: adequate Cardiopulmonary Status: at baseline Mental Status/LOC: patient returned to baseline Post-Anesthesia Complications: 0 Follow-up care needed: ready to discharge Alley Olivera MD Nov 18, 2018 06:48
== END 2018-11-17 14:54 | disposition home or self-care (01) | DRG 661 ==
LOC: EMR 14:30 → 3E 16:48 → EDBEDREQ 17:39 → 3E 11-16 15:44
PROC: BT1D1ZZ Fluoroscopy of Right Kidney, Ureter and Bladder using Low Osmolar Contrast (ICD-10-PCS; principal; 2018-11-16 10:15)
PROC: 0T768DZ Dilation of Right Ureter with Intraluminal Device, Via Natural or Artificial Opening Endoscopic (ICD-10-PCS; principal; 2018-11-16 10:15)
PROC: 0TC38ZZ Extirpation of Matter from Right Kidney Pelvis, Via Natural or Artificial Opening Endoscopic (ICD-10-PCS; principal; 2018-11-16 10:15)
DX: N13.2 Hydronephrosis with renal and ureteral calculous obstruction (principal); N17.9 Acute kidney failure, unspecified; E03.9 Hypothyroidism, unspecified; E74.39 Other disorders of intestinal carbohydrate absorption
CPT/HCPCS: 36415; 74177; 74420; 76000; 80048; 80053; 81003; 83036; 83690; 83970; 84484; 84550; 85007; 85025; 93005; 94003; 94150; 96361; 96365; 96375; 99285; J2250; J2405

== ENCOUNTER 2018-12-06 17:11 | Outpatient (CLI) | payer BC ==
[~2018-12-06 17:11] MED LIST: LEVOFLOXACIN250 MG ORAL; PHENAZOPYRIDIN100 MG ORAL; SYNTHROID100 MCG ORAL
--- NOTE | 2018-12-07 12:56 | Diagnostic Imaging Report ---
Indication: Dyspnea Comparison: None A single view chest radiograph was obtained. Findings: Cardiomediastinal appearance is within normal limits for age. The lungs are clear. Pulmonary vascularity is appropriate. The diaphragmatic contour is smooth and costophrenic angles are sharp. No pleural effusions are identified. The bones are unremarkable. Impression: No acute findings
== END 2018-12-06 19:11 | disposition home or self-care (01) ==
LOC: RAD 17:11
DX: Z01.811 Encounter for preprocedural respiratory examination (principal)
CPT/HCPCS: 71045

== ENCOUNTER 2018-12-21 09:43 | Day surgery (SDC) | payer BC ==
[2018-12-21] VITALS (12 sets, daily range): BP systolic 114–148; BP diastolic 65–80
[~2018-12-21] VITALS: Ht 149.9 cm; Wt 71.7 kg
[~2018-12-21 09:43] MED LIST changes: +MACRODANTIN100 MG ORAL; +ceFAZolin sod 1 GM in NS 55 ML IVPB ONE
--- NOTE | 2018-12-21 10:53 | Anethesia Preoperative Eval ---
Anesthesia Pre-op PMH/ROS General Date of Evaluation: Dec 21, 2018 Time of Evaluation: 12:27 Anesthesiologist: Karla Cruz CRNA ASA Score: ASA 2 Mallampati Score Class I : Soft palate, uvula, fauces, pillars visible Class II: Soft palate, uvula, fauces visible Class III: Soft palate, base of uvula visible Class IV: Only hard plate visible Mallampati Classification: Class II Surgeon: Magali Diagnosis: kidney stones, hydronephrosis Surgical Procedure: ESWL Family History: no anesthesia problems Allergies: Coded Allergies: LEVOFLOXACIN (Verified Allergy, Intermediate, 12/20/18) LOSS OF APPETITE,FATIGUE AND MILD HEADACHE,RIGHT LEG PAIN Medications: see eMAR Patient NPO?: Yes NPO Date: Dec 21, 2018 NPO Time: 00:00 Past Medical History Cardiovascular: Denies: HTN, CAD, [place], valve dz, arrhythmia, other Pulmonary: Reports: other - (B) ovarian CA, kidney stones, hydronephrosis; Denies: asthma, COPD, TAMMI Gastrointestinal/Genitourinary: Reports: other - (B) ovarian cancer, kidney stones, hydronephrosis; Denies: GERD, CRI, ESRD Neurologic/Psychiatric: Denies: dementia, CVA, depression/anxiety, TIA, other Endocrine: Reports: hypothyroidism; Denies: DM, steroids, other Hematology/Immune: Denies: anemia, DVT, bleeding disorder, other PMH Narrative: as noted above PSxH Narrative: (B) oopherectomy, ESWL Anesthesia Pre-op Phys. Exam Physician Exam Last Vital Signs Date Time Temp Pulse Resp B/P (MAP) Pulse Ox O2 Delivery O2 Flow Rate FiO2 12/21/18 10:36 98.7 64 20 117/74 99 Room Air Constitutional: NAD Neurologic: other - alert & oriented Respiratory: CTA Gastrointestinal: S/NT/ND Airway Exam Mallampati Score: Class II MO: full Neck: FROM TMD: > 3 FB ROM: full Teeth: intact Dentures: no upper, no lower Anesthesia Pre-op A/P Studies Pre-op Studies: EKG - NSR Risk Assessment & Plan Assessment: ASA 2, ok to proceed Plan: GA Pre-Antibiotics Drug: Karla Fraser CRNA Dec 21, 2018 10:53
[2018-12-21] MEDS ORDERED: fentaNYL 100 mcg/2 mL IV ONE (11:00)
[2018-12-21] MEDS ORDERED: Lidocaine 1% MPF 10mg/ml 5ml ONE (11:00)
[2018-12-21] MEDS ORDERED: Midazolam 2mg/2ml Inj ONE (11:00)
[2018-12-21] MEDS ORDERED: Propofol 200mg/20ml IV ONE (11:00)
--- NOTE | 2018-12-21 12:14 | Pre-Procedure Note/Attestation ---
Pre-Procedure Note/Attestation Complete Prior to Procedure Planned Procedure: right Procedure Narrative: RIRS Right ESWL stent removal and placement Attestation I attest that I discussed the nature of the procedure; its benefits; risks and complications; and alternatives (and the risks and benefits of such alternatives ), prior to the procedure, with the patient (or the patient's legal sales representative cash registers). I attest that, if there was a reasonable possibility of needing a blood transfusion, the patient (or the patient's legal sales representative cash registers) was given the [facility] standardized written summary, pursuant to the [place] Blood Safety Act ([place] Health and Safety Code # 1645, as amended). I attest that I re-evaluated the patient just prior to the surgery and that there has been no change in the patient's H&P, except as documented below: Ki De Los Santos MD Dec 21, 2018 12:14
[2018-12-21] MEDS ORDERED: Iothalamate Meglumine 60% 30ML INJ ONE (12:18)
[2018-12-21] MEDS ORDERED: Sterile Water For Irrig 2000ml IRRIG ONE ×2 (12:38→12:55)
[2018-12-21] MEDS ORDERED: Metoclopramide 10mg/2ml Inj ONE (12:44)
[2018-12-21] MEDS ORDERED: NS Irrig 4000ml IRRIG ONE (12:55)
[2018-12-21] MEDS ORDERED: Morphine Sulfate 10mg/ml Inj ONE (12:57)
--- NOTE | 2018-12-21 13:10 | Immediate Post-Op Evaluation ---
Immediate Post-Op Evalulation Immediate Post-Op Evalulation Procedure: ESWL, cystoscopy with RIGHT ureteral stent exchange Date of Evaluation: Dec 21, 2018 Time of Evaluation: 13:27 IV Fluids: LR 900 ml Blood Pressure Systolic: 125 Blood Pressure Diastolic: 64 Pulse Rate: 70 Respiratory Rate: 20 O2 Sat by Pulse Oximetry: 100 Temperature (Fahrenheit): 99.0 Pain Score (1-10): 0 Nausea: No Vomiting: No Complications none Patient Status: awake, reacts, extubated Hydration Status: adequate Drug: cefazolin 1 gm IV Given Within 1 Hr of Incision: Yes Time Given: 12:10 Karla Cruz CRNA Dec 21, 2018 13:10
[2018-12-21] MEDS ORDERED: Hydromorphone 0.5mg/0.5ml inj IVP PRN (13:15)
--- NOTE | 2018-12-21 13:39 | Brief Operative Note ---
Immediate Post Operative Note Operative Note Pre-op Diagnosis: right kidney stone Procedure: Right RIRS ESWL right stent removal stent placement Post-op Diagnosis: same Post-op Diagnosis: same as pre-op Surgeon: Dusty De Los Santos Anesthesia: general Specimen: none Complications: none Condition: stable Fluids: 1000 Implant(s) used?: No Ki De Los Santos MD Dec 21, 2018 13:39
[2018-12-21] MEDS ORDERED: HYDROmorphone 1mg/ml Carpuject SUBQ PRN (13:45)
[2018-12-21] MEDS ORDERED: Tylenol #3 tab (300mg/30mg) ORAL PRN (13:45)
[2018-12-21] MEDS ORDERED: HYDROcodone/Acetamin 5/325 tab ORAL PRN (13:45)
--- NOTE | 2018-12-21 14:16 | 48 Hour Post Anesthesia Eval ---
Post Anesthesia Evaluation Procedure: ESWL, cystoscopy with RIGHT ureteral stent exchange Date of Evaluation: Dec 21, 2018 Time of Evaluation: 14:15 Blood Pressure Systolic: 120 0: 70 Pulse Rate: 62 Respiratory Rate: 20 Temperature (Fahrenheit): 99 O2 Sat by Pulse Oximetry: 97 Airway: patent Nausea: No Vomiting: No Pain Intensity: 0 Hydration Status: adequate Cardiopulmonary Status: stable Mental Status/LOC: patient returned to baseline Follow-up Care/Observations: per urology Post-Anesthesia Complications: none Follow-up care needed: ready to discharge Karla Cruz CRNA Dec 21, 2018 14:16
[2018-12-21] MEDS ORDERED: Meperidine 50mg/ml Inj(FOR RIGORS ONLY) ONE (14:20)
[2018-12-21] MEDS ORDERED: Meperidine 50mg/ml Inj(FOR RIGORS ONLY) IVP SCH (14:30)
[2018-12-21] MEDS ORDERED: D5 1/2NS 1,000 ML IV SCH (18:00)
--- NOTE | 2018-12-23 11:54 | Operative Note - Dictated ---
DATE OF OPERATION: 12/21/2018 PREOPERATIVE DIAGNOSIS: Residual stone in the right kidney. POSTOPERATIVE DIAGNOSIS: Residual stone in the right kidney. OPERATION: Cystoscopy, removal of the old double-J stent, flexible ureteroscopy, laser lithotripsy combined with extracorporeal shock wave lithotripsy of two stones in the right kidney. OPERATED BY: Ki De Los Santos M.D. ANESTHESIA: General. FINDINGS: Retained stent in the right kidney. INDICATIONS FOR SURGERY: The patient had and was admitted to the hospital. A month ago, had lithotripsy of the ureteral stone and double-J stent placement. She had some additional calculi in the kidney. Treatment options explained to her in great length including all potential complications. She signed a consent. PROCEDURE IN DETAIL: She was brought to the operating room, placed in lithotomy position. Prepped and draped in standard fashion. A cystoscope was introduced and old stent was grasped and removed. A guidewire was placed into the collecting system of the right kidney. Flexible ureteroscope was introduced. Stone was found in the pelvis in the lower calyx of the kidney. Using extracorporeal shock wave lithotripsy, the stone was fragmented into small dust. A double-J stent was placed and left indwelling. The patient tolerated the procedure well. No complications. Ki De Los Santos M.D. DR: RAY JOB#: [id number] CC:
== END 2018-12-21 15:30 | disposition home or self-care (01) ==
LOC: SUR 09:43
DX: N20.0 Calculus of kidney (principal); Z85.43 Personal history of malignant neoplasm of ovary; Z90.722 Acquired absence of ovaries, bilateral; E03.9 Hypothyroidism, unspecified; Z88.8 Allergy status to other drugs, medicaments and biological substances
CPT/HCPCS: 52356; 82962; C1769; J0690; J2175; J2250; J2270; J2405; J2704; J2765; J3010; Q9961; 94003; 94150